=== PATIENT | female | born 1950 | race Caucasian/White ===

== ENCOUNTER 2023-01-12 20:28 | Emergency (ER) | payer MEDICARE, BC, SELFPAY ==
[2023-01-12 20:32] VITALS: BP 154/65; PULSE 87; RESP 17; TEMP 36.5; O2SAT 95; BMI 43.9
--- NOTE | 2023-01-12 20:37 | ED_ITS ---
HPI - General Adult General Chief complaint: Allergic Reaction Stated complaint: Allergic reaction, shaky, difficulty breathing Time Seen by Provider: 01/12/23 23:13 Source: patient Mode of arrival: ambulatory Limitations: no limitations History of Present Illness HPI narrative: Patient with no significant past medical history lives in [place] has urinary frequency and dysuria last week was seen by PCP and started on Macrobid 6 days ago today she did not urinate much and notices macular rash all over the lower extremity a with slight leg swelling patient felt slightly tight in the chest with shortness of breath were saturating 96% at room air no history of any allergic reaction in the past patient does have history of kidney stone in the past Related Data Previous Rx's Medication Instructions Recorded cephalexin 500 mg capsule 500 mg PO QID 10 days #40 caps 01/13/23 doxycycline hyclate 100 mg tablet 100 mg PO BID #20 tabs 01/13/23 Allergies Allergy/AdvReac Type Severity Reaction Status Date / Time acetaminophen [From Percocet] Allergy Hives Verified 01/12/23 20:43 oxycodone [From Percocet] Allergy Hives Verified 01/12/23 20:43 Review of Systems 2 Review of Systems: Yes all other systems are reviewed and are negative [facility] Social History Social History Smoked in Last 30 Days: No Use of substances other than those prescribed or required for medical reasons: No Advance Directives: No Advance Directives Information Provided: No Physical Exam ED Vital Signs: Vital Signs - 24 hr 01/12/23 23:51 01/13/23 01:57 Pulse Rate 73 75 Respiratory Rate 17 18 Blood Pressure 141/62 H Pulse Oximetry 96 93 Oxygen Delivery Method Room Air Room Air BMI result Body Mass Index 43.9 Appearance: Alert. Oriented X3. No acute distress. Eyes: PERRLA, No Nystagmus ENT: Pharynx normal. Oral Mucosa moist Neck: Normal inspection. Neck supple. CVS: Normal heart rate and rhythm. Pulses normal. Respiratory: No respiratory distress. Equal air entry bilateral, no wheezing/rales/rhonchi Abdomen: Soft and nontender. Bowel sounds are present, no mass palpable, no CVA tenderness Skin: Skin warm and dry. Normal skin turgor. Extremities: No lower extremity edema. No calf tenderness erythematous rash both lower extremities more red and warm on the left leg no rash noticed anywhere else Neuro: Oriented X 3. No motor deficit. No sensory deficit.No cerebellar signs , cranial nerves II-XII intact Course Course Course Narrative: This is an RME: Additional HPI, ROS, PE not included below will be deferred to primary provider. This is a [id number], with a hx of hypertension, thyroid disease, hyperlipidemia, presenting to the emergency department with complaints of ?allergic rxn since wednesday. Patient reports that last week she was diagnosed with urinary tract infection was started on nitrofurantoin. She states that since Wednesday she has had increased redness the back of her legs, chest tightness, sore throat, and shortness of breath. She also endorses some chest pain. She discontinued the nitrofurantoin. Still having urinary symptoms. Plan: Labs EKG chest x-ray viral swabs Medications Administered Discontinued Medications Generic Name Dose Route Start Last Admin Trade Name Freq PRN Reason Stop Dose Admin Cephalexin HCl 500 mg 01/13/23 02:04 01/13/23 02:17 Cephalexin 500 Mg Capsule PO 01/13/23 02:05 500 mg ONCE ONE Administration Diphenhydramine HCl 25 mg 01/12/23 23:35 01/13/23 00:15 Diphenhydramine Hcl 50 Mg/Ml Vial IVPUSH 01/12/23 23:36 25 mg ONCE ONE Administration Doxycycline Monohydrate 100 mg 01/13/23 02:04 01/13/23 02:17 Doxycycline Monohydrate 100 Mg Capsule PO 01/13/23 02:05 100 mg ONCE ONE Administration Famotidine 20 mg 01/12/23 23:36 01/13/23 00:15 Famotidine/Pf 20 Mg/2 Ml Vial IVPUSH 01/12/23 23:37 20 mg ONCE ONE Administration Sodium Chloride 1,000 mls @ 999 mls/hr 01/12/23 23:35 01/13/23 02:26 Ns IV 01/13/23 00:35 Infused .Q1H1M ONE Infusion Methylprednisolone Sodium Succinate 125 mg 01/12/23 23:35 01/13/23 00:15 Methylprednisolone Sod Succ 125 Mg/2 Ml Vial IVPUSH 01/12/23 23:36 125 mg ONCE ONE Administration Medical Decision Making Medical Decision Making [facility] Narrative: Patient history of UTI came here with macular papular rash secondary to Macrobid not in anaphylactic shock was received Solu-Medrol and Pepcid although patient did not urinate much today BUN creatinine elevated Possible she has cellulitis of both lower extremities versus rash from the antibiotic left leg is more from will discharge patient home on cephalexin and doxycycline for possible cellulitis Differential Diagnosis Differential Diagnoses: The differential diagnosis associated with the presentation includes Cellulitis/allergic reaction Consult Healthcare Provider Management of the patient was discussed with: Hospitalist Lab Data MDM Lab Attestation statement: I reviewed the patient's lab results. 01/12/23 21:05 01/12/23 21:05 Labs: Lab Results 01/12/23 Range/Units 21:05 WBC 9.8 (4.8-10.8) X10*3/uL RBC 4.47 (4.20-5.50) X10*6/uL Hgb 13.3 (12.0-16.0) g/dl Hct 39.9 (37.0-47.0) % MCV 89.3 (80.0-98.0) fL MCH 29.8 (27.0-33.0) pg MCHC 33.3 (31.0-35.0) g/dl RDW 12.9 (11.0-16.0) % Plt Count 243 (160-400) X10*3/uL MPV 10.0 (9.4-12.3) fL Immature Gran % (Auto) 0.5 H (0.0-0.4) % Neut % (Auto) 66.5 (45-73) % Lymph % (Auto) 16.5 L (20-40) % Story % (Auto) 12.2 H (2-11) % Eos % (Auto) 4.1 H (0-4) % Baso % (Auto) 0.2 (0-2) % Lymph # (Auto) 1.6 (1.2-4.9) X10*3/uL Story # (Auto) 1.2 (0.1-1.2) X10*3/uL Eos # (Auto) 0.4 (0.0-0.4) X10*3/uL Baso # (Auto) 0.0 (0.0-0.2) X10*3/uL Abs Immat Gran (auto) 0.05 H (0.00-0.03) X10*3/uL Absolute Neuts (auto) 6.5 (2.0-8.3) x10*3/uL Absolute Nucleated RBC 0.000 (0.0-0.012) X10*3/uL Nucleated RBC % (auto) 0.0 (0.0-0.2) /100WBC Sodium 135 (135-145) mmol/L Potassium 3.7 (3.3-5.1) mmol/L Chloride 104 (96-108) mmol/L Carbon Dioxide 18 L (22-29) mmol/L Anion Gap 17 (12-20) BUN 27 H (9-16) mg/dL Creatinine 1.54 H (0.5-1.4) mg/dL Estim Creat Clear Calc 42.8 Estimated GFR 33 Random Glucose 112 (60-115) mg/dL Calcium 9.3 (8.4-10.2) mg/dL Total Bilirubin 0.4 (0.0-1.0) mg/dL Direct Bilirubin 0.2 (0.0-0.5) mg/dL AST 17 (5-31) U/L ALT 17 (0-31) U/L Alkaline Phosphatase 81 (39-117) U/L Troponin I High Sens 6.8 (<3.5-17.0) ng/L B-Natriuretic Peptide 56 (<100) pg/mL Total Protein 6.5 (6.5-8.0) g/dL Albumin 3.7 (3.5-5.0) g/dL Urine Color Dark Yellow Urine Appearance Clear Urine pH 5.0 (5.0-9.0) Ur Specific [place] 1.020 (1.005-1.025) Urine Protein Trace (Neg-Trace) mg/dL Urine Glucose (UA) Negative (Negative) mg/dL Urine Ketones Trace (Negative) mg/dL Urine Blood Negative (Negative) Urine Nitrite Negative (Negative) Ur Leukocyte Esterase Trace H (Negative) Urine RBC 0-2 (0-2) /HPF Urine WBC 0-5 (0-5) /HPF Ur Squamous Epith Cells 6-10 (0-2) /HPF Urine Bacteria 1+ (None Seen) Hyaline Casts >20 (0-2) /LPF Influenza Type A (PCR) NEGATIVE (Negative) Influenza Type B (PCR) NEGATIVE (Negative) RSV RNA Qual (PCR) NEGATIVE (Negative) SARS-CoV-2 RNA (RT-PCR) NEGATIVE (Negative) Discharge Plan Discharge Clinical Impression: Allergic reaction, Cellulitis Patient Disposition: Home, Self-Care Instructions: Cellulitis (ED), General Allergic Reaction (ED) Additional Instructions: Possibly you have mild allergic reaction to nitrofurantoin Also you have cellulitis of lower extremities Take antibiotic as prescribed Keep your legs elevated Do not take Nitrofurantoin Report to the ER/PCP if worsening of the rash Prescriptions: New cephalexin 500 mg capsule 500 mg PO QID 10 Days Qty: 40 0RF doxycycline hyclate 100 mg tablet 100 mg PO BID Qty: 20 0RF Interventions: ED Discharge Assessment Last Done: 01/13/23 02:27 Discharge Date/Time: 01/13/23 02:28
--- NOTE | 2023-01-12 20:57 | MHC.EDTECH ---
EKG,labs and urine specimen were obtained and patient brought back to waiting room.
[2023-01-12 21:25] LABS: Alanine Aminotransferase 17 U/L (0-31); Albumin Level 3.7 g/dL (3.5-5.0); Alkaline Phosphatase 81 U/L (39-117); Anion Gap 17 (12-20); Aspartate Amino Transferase 17 U/L (5-31); Bilirubin Direct 0.2 mg/dL (0.0-0.5); Bilirubin Total 0.4 mg/dL (0.0-1.0); Blood Urea Nitrogen 27 mg/dL (9-16); Calcium 9.3 mg/dL (8.4-10.2); Carbon Dioxide 18 mmol/L (22-29); Chloride 104 mmol/L (96-108); Creatinine Clr Calc Pharmacy 42.8; Estimated Glomerular Filt Rate 33; Glucose Random 112 mg/dL (60-115); Potassium 3.7 mmol/L (3.3-5.1); Sodium 135 mmol/L (135-145); Total Protein 6.5 g/dL (6.5-8.0)
[2023-01-12 21:49] VITALS: BP 130/73; PULSE 91; RESP 19; O2SAT 94
[2023-01-12 23:51] VITALS: PULSE 73; RESP 17; O2SAT 96
--- NOTE | 2023-01-13 00:23 | PC.NURSE ---
This RN assumed care at 2100. Patient alert and oriented, able to make needs known and two sisters at bedside. 22g IV placed and patient medicated per MAR
[2023-01-13 01:57] VITALS: BP 141/62; PULSE 75; RESP 18; O2SAT 93
--- NOTE | 2023-01-13 02:20 | PC.NURSE ---
Patient able to walk to the bathroom with this RN with steady gait, able to urinate.
== END 2023-01-13 02:28 | disposition home or self-care (01) ==
PROVIDERS: Physician Assistant Medical; Emergency Provider Internal Medicine
DX: L50.0 Allergic urticaria (principal); L03.116 Cellulitis of left lower limb; L03.115 Cellulitis of right lower limb; R30.0 Dysuria; R35.0 Frequency of micturition; R07.89 Other chest pain; R06.02 Shortness of breath; Z20.822 Contact with and (suspected) exposure to COVID-19; Z20.828 Contact with and (suspected) exposure to other viral communicable diseases; Z79.899 Other long term (current) drug therapy
CPT/HCPCS: 0241U; 36415; 71046; 74176; 80048; 80076; 81001; 83880; 84484; 85025; 93005; 96361; 96374; 96375; 99284; 99285; J1200; J2930